=== PATIENT | female | born 1980 | race Caucasian/White ===

== ENCOUNTER 2019-04-20 15:20 | Observation (INO) ==
[~2019-04-20 15:20] MED LIST: ACETAMINOPHEN 500 MG TABLET PO ONE; CELECOXIB 200 MG CAPSULE PO ONE; GABAPENTIN 300 MG CAPSULE PO ONE; LIDOCAINE W/ SODIUM BICARB 0.5 ML SYR ONE; LIDOCAINE W/ SODIUM BICARB 0.5 ML SYR SUBD PRN; Lactated Ringers 1,000 ML PRIMARY IV ONE; Lactated Ringers 1,000 ML PRIMARY IV SCH; Nasal Sanitizer POPSWAB ampule 3 AMP (Nozin) PREOP DOSE ENOS SCH; PANTOPRAZOLE 20 MG TABLET.DR PO ONE; ceFAZolin Inj 2gm (Premix) 2 GM/50 ML BAG IV ONE
[2019-04-20] MEDS ORDERED: Ketorolac Inj 30 MG, Morphine Inj (Ortho Cocktail) 4 MG, BUPivacaine Inj 0.25% PF 150 MG SPLASH ONE ×3 (15:30)
[2019-04-20 15:41] LABS: URINE SPECIFIC GRAVITY - MAN 1.009
[2019-04-20] MEDS ORDERED: PROPOFOL 10 MG/1 ML (200 MG/20 ML) VIAL IV ONE ×4 (15:49→19:29)
[2019-04-20] MEDS ORDERED: fentaNYL Inj 250 MCG/5 ML VIAL ONE (15:49)
[2019-04-20] MEDS ORDERED: LIDOCAINE MPF 2% - 5 ML (20 MG/1 ML) ONE (15:49)
[2019-04-20] MEDS ORDERED: MIDAZOLAM HCL 2 MG/2 ML VIAL ONE (15:49)
[2019-04-20] MEDS ORDERED: BUPivacaine Liposome/PF (Exparel) Inj 20ml vial INFIL ONE (18:29)
[2019-04-20] MEDS ORDERED: Sodium Chloride 0.9% vial 10 ML ONE (18:29)
[2019-04-20] MEDS ORDERED: ePHEDrine Inj 50 MG/ML AMP ONE (18:42)
[2019-04-20] MEDS ORDERED: Lactated Ringers 1,000 ML PRIMARY IV ONE (19:44)
--- NOTE | 2019-04-20 20:00 | ORTHO.OP ---
- - -: See Dictated Operative Report
[2019-04-20] MEDS ORDERED: KETOROLAC 30 MG/1 ML VIAL ONE (20:05)
[2019-04-20] MEDS ORDERED: ONDANSETRON 4 MG/2 ML VIAL IVP PRN ×2 (20:11→20:49)
[2019-04-20] MEDS ORDERED: LIDOCAINE W/ SODIUM BICARB 0.5 ML SYR SUBD PRN (20:11)
[2019-04-20] MEDS ORDERED: KETOROLAC 30 MG/1 ML VIAL IVP ONE (20:11)
[2019-04-20] MEDS ORDERED: HYDROmorphone 2 MG/1 ML IVP PRN (20:11)
--- NOTE | 2019-04-20 20:13 | CRNA.PROCE ---
Central Neuraxis Block Placemt - - Safety Measures: Time Out Taken, Site Verified - - Type of Block: Subarachnoid Reason for Block: Surgical Moniters Used During Block: EKG, SPO2, NIBP Sedation Used - Enter Amount Used in Comment Field: Midazolam (mg): Yes (2), Fentanyl (mcg): Yes (100) Positioning: Sitting Skin Prep Used: ChloroPrep Skin Infiltration - Enter Amount Used in Comment Field: 1% Xylocaine (mL): Yes Introducer User: [id number] Gauge Spinal Needle Used: 25 Aleshia 80 mm Local Anesthetic - Enter Amount Used in Comment Field: 0.75 % Bupivacaine with Dextrose (ml): Yes (2) Anesthesia Time - Other Weight: 98.43 kg Height: 5 ft 11 in Body Mass Index (BMI): 30.2
--- NOTE | 2019-04-20 20:14 | CRNA.PROGR ---
Anesthesia Recovery Phase I - Post Anesthesia Evaluation Patient's Condition on Arrival in Phase I: Stable Pain Level: 0
--- NOTE | 2019-04-20 20:14 | CRNA.PROGR ---
Anesthesia Time - Procedure/Recovery Time Start Date: 04/20/19 End Date: 04/20/19 Anesthesia : Time In: 17:40 Anesthesia : Time Out: 20:04 Anesthesia : Total Time: 144 - Total Anesthesia Time Total Anesthesia Time (minutes): 144 - Other Weight: 98.43 kg Height: 5 ft 11 in Body Mass Index (BMI): 30.2 Physical Status: P2 Anesthesia Type: Spinal Block
[2019-04-20] MEDS ORDERED: Lactated Ringers 1,000 ML PRIMARY IV SCH (20:15)
[2019-04-20] MEDS: fentaNYL Inj 100 MCG/2 ML VIAL IVP PRN ×2 (20:26→20:31)
[2019-04-21] MEDS: HYDROcodone-APAP 7.5 MG-325 MG TABLET PO PRN ×3 (02:22→07:09)
[2019-04-21 04:17] VITALS: TEMP 98.6; O2SAT 99
[2019-04-21 06:43] VITALS: BP 107/63; RESP 17
== END 2019-04-21 09:49 | disposition home or self-care (01) ==
LOC: OPS 15:20 → MED/SURG 15:20 → EDSTATUS 04-21 07:39 → OR 04-21 07:44
PROVIDERS: ADMIT Physician Assistant Surgical; ATTEND Physician Assistant Surgical